=== PATIENT | female | born 1965 | race Caucasian/White ===

== ENCOUNTER 2017-02-26 10:23 | Emergency (ER) | payer MEDICAID ==
[~2017-02-26] VITALS: Ht 157.5 cm; Wt 60.8 kg
[~2017-02-26 10:23] MED LIST: DIVA125T3 PO; LORA-445; RISP1TAB45 PO; TRAZ50TA18 PO
[2017-02-26] MEDS ORDERED: CEFTRIAXONE 250 MG ONE (10:54)
[2017-02-26] MEDS ORDERED: AZITHROMYCIN 500 MG TABLET ONE (10:54)
[2017-02-26 11:30] LABS: ASPARTATE AMINO TRANSFERASE 14 U/L (15-37); BLOOD UREA NITROGEN 23 mg/dL (7-18)
[2017-02-26] MEDS ORDERED: AZITHROMYCIN 500 MG TABLET PO ONE (12:00)
[2017-02-26] MEDS ORDERED: CEFTRIAXONE 250 MG IM ONE (12:00)
[2017-02-26 12:20] VITALS: BP 126/68
[2017-02-26 13:05] LABS: HCG UR OBC PASS
[2017-02-26] MEDS ORDERED: FLUCONAZOLE 100 MG TABLET PO ONE (13:30)
== END 2017-02-26 13:20 | disposition home or self-care (01) ==
LOC: ED 11:40
DX: B37.3 Candidiasis of vulva and vagina (principal)
CPT/HCPCS: 36415; 74022; 80053; 81001; 81025; 84703; 85025; 87086; 87210; 87491; 87591; 87808; 96372; 99285; J0696

== ENCOUNTER 2018-07-14 19:29 | Emergency (ER) | payer MEDICAID ==
[~2018-07-14 19:29] MED LIST changes: -DIVA125T3 PO; +DIVA125T31 PO; +TRAZ-136 PO; -TRAZ50TA18 PO
== END 2018-07-14 20:01 | disposition left against medical advice (07) ==
LOC: ED 19:55
DX: Z53.21 Procedure and treatment not carried out due to patient leaving prior to being seen by health care provider (principal)

== ENCOUNTER 2018-09-22 16:18 | Emergency (ER) | payer MEDICAID ==
[~2018-09-22] VITALS: Ht 157.5 cm; Wt 55.5 kg
[~2018-09-22 16:18] MED LIST changes: -TRAZ-136 PO; +TRAZ50TA66 PO
[2018-09-22 16:20] VITALS: BP 140/82
--- NOTE | 2018-09-22 18:19 | NUR ---
CALLED FOR ROOM, NO ANSWER.
--- NOTE | 2018-09-22 18:28 | NUR ---
CALLED FOR ROOM, NO ANSWER
--- NOTE | 2018-09-22 18:42 | NUR ---
3RD CALL FOR ROOM, NO ANSWER
== END 2018-09-22 18:48 ==
LOC: ED 18:42
DX: M79.671 Pain in right foot (principal); M79.672 Pain in left foot
CPT/HCPCS: 99283

== ENCOUNTER 2018-09-23 03:50 | Emergency (ER) | payer MEDICAID ==
--- NOTE | 2018-09-23 04:14 | NUR ---
PT CALLED FOR TRIAGE AND TOLD RN "I'LL BE THERE WHEN I GET THERE". PT TALKING TO SELF AND TWITCHING AROUND IN LOBBY.
--- NOTE | 2018-09-23 04:18 | NUR ---
PT CONT TO REFUSE TRIAGE. DANCING AROUND IN LOBBY AT THIS TIME.
--- NOTE | 2018-09-23 04:33 | NUR ---
SECURITY ESCORTED PT OUT OF LOBBY
== END 2018-09-23 04:36 | disposition left against medical advice (07) ==
LOC: ED 04:31
DX: R68.0 Hypothermia, not associated with low environmental temperature (principal); Z53.21 Procedure and treatment not carried out due to patient leaving prior to being seen by health care provider

== ENCOUNTER 2018-09-23 14:24 | Emergency (ER) | payer MEDICAID ==
[~2018-09-23] VITALS: Ht 157.5 cm; Wt 50.0 kg
[2018-09-23 14:36] VITALS: BP 129/77
--- NOTE | 2018-09-23 14:45 | NUR ---
PT AMBULATORY TO ROOM 3 W/ C/P PSYCHOSIS. PT NOT ANSWERING QUESTIONS. REFUSING ASSESSMENT AT THIS TIME. PER LEGAL PT WAS PLACED ON HOLD FOR STATING SHE WOULD JUMP OFF A BRIDGE. PERSONAL BELONGINGS (1 OF 1) PLACED IN SECURE LOCKER. ERP DR. CARTER AT BEDSIDE. ROOM SECURED. SITTER AT BEDSIDE. Addendum: 09/23/18 at 1456 by GISELLA BELONGING BAGS (2 OF 2)
[2018-09-23] MEDS ORDERED: LORazepam 2 MG/ML, 1ML ONE (14:49)
[2018-09-23] MEDS ORDERED: LORazepam 2 MG/ML, 1ML IM ONE (15:00)
[2018-09-23 15:16] LABS: BASOPHILS # (AUTO) 0.06 x10^3/uL (0-0.1); BASOPHILS % (AUTO) 1 % (0-1); EOSINOPHILS # (AUTO) 0.15 x10^3/uL (0-0.4); EOSINOPHILS % (AUTO) 2 % (1-7); LYMPHOCYTES # (AUTO) 1.77 x10^3/uL (1-3.4); LYMPHOCYTES % (AUTO) 24 % (22-44); MD NO; MEAN CORPUSCULAR HEMOGLOBIN 30.3 pg (27.0-34.8); MEAN CORPUSCULAR HGB CONC 33.2 g/dL (32.4-35.8); MEAN CORPUSCULAR VOLUME 91.4 fL (80-100); MEAN PLATELET VOLUME 7.9 fL (7.4-10.4); MONOCYTES # (AUTO) 0.74 x10^3/uL (0.2-0.8); MONOCYTES % (AUTO) 10 % (2-9); NEUTROPHILS # (AUTO) 4.67 x10^3/uL (1.8-6.8); NEUTROPHILS % (AUTO) 63 % (42-75); PLATELET COUNT 284 x10^3/uL (130-400); RED BLOOD COUNT 3.44 x10^6/uL (3.82-5.3); RED CELL DISTRIBUTION WIDTH 15.9 % (9.6-15.2)
[2018-09-23 15:20] LABS: ALANINE AMINOTRANSFERASE 29 U/L (12-78); ALBUMIN 3.6 g/dL (3.4-5.0); ANION GAP 6 mmol/L (5-15); CALCIUM 8.5 mg/dL (8.5-10.1); CHLORIDE 111 mmol/L (98-107); CREATININE 0.89 mg/dL (0.55-1.02)
[2018-09-23 15:28] LABS: ALKALINE PHOSPHATASE 98 U/L (45-117); BILIRUBIN,TOTAL 0.6 mg/dL (0.2-1.0); CREATINE KINASE, TOTAL 399 U/L (26-192); TOTAL PROTEIN 7.1 g/dL (6.4-8.2)
[2018-09-23 15:29] LABS: ACETAMINOPHEN < 2 mcg/mL (10-30); SALICYLATE LEVEL < 1.7 mg/dL (2.8-20.0)
[2018-09-23] MEDS ORDERED: DIPH,PERTUSS(ACELL),TET VAC/PF 0.5 ML IM-VACC ONE ×2 (16:00→19:00)
--- NOTE | 2018-09-23 16:04 | NUR ---
REPORT GIVEN TO ELLIOTT HUNT.
--- NOTE | 2018-09-23 16:04 | NUR ---
REPORT FROM ELLIOTT LOVE
--- NOTE | 2018-09-23 16:19 | NUR ---
PT MOSTLY SLEEPY. RESTING IN GURNEY W/ EYES CLOSED. EVEN/REGULAR RESPIRATIONS NOTED. PT ON CONTINUOUS SPO2 MONITORING. SPO2 >90% ON RA. ROOM SECURE. NO PERSONAL BELONGINGS NOTED IN ROOM. SITTER PRESENT.
--- NOTE | 2018-09-23 18:00 | NUR ---
PT PLACED ON 2L BY NC FOR SPO2 85%. PT REMAINS MOSTLY DROWSY, AROUSABLE TO VOICE AND LIGHT PHYSICAL STIM AND RETURNS QUICKLY TO SLEEP. SITTER PRESENT. ROOM SECURE
--- NOTE | 2018-09-23 19:09 | NUR ---
BREAK RN-TDAP GIVEN IN R DELTOID. PT SLEEPING. SPO2=94% ON 2L VIA NASAL CANNULA.
--- NOTE | 2018-09-23 20:28 | NUR ---
PT SITTING UP IN BED, REMAINS MOSTLY DROWSY. SPO2 >90% ON RA. SITTER AT DOORWAY
--- NOTE | 2018-09-23 22:18 | NUR ---
PT AWAKE/MAINTAINING RA SPO2 >90%. PT PROVIDED BELONGINGS AND ASKED TO DRESS SELF. PT REQUIRING ENCOURAGEMENT TO DRESS. TECH AT BEDSIDE TO ASSIST PT. DC EDUCATION PROVIDED. TAXI VOUCHER PROVIDED TO [facility] WHERE THERE IS A BED BEING RESERVED FOR HER.
--- NOTE | 2018-09-23 22:25 | NUR ---
PT PROVIDED JUICE. AMBULATED STEADILY TO [place] WHERE [facility] WAS CALLED FOR TRANSPORT TO [facility]
== END 2018-09-23 22:27 | disposition home or self-care (01) ==
LOC: ED 16:17
DX: F23 Brief psychotic disorder (principal); G89.29 Other chronic pain; F32.9 Major depressive disorder, single episode, unspecified
CPT/HCPCS: 36415; 80053; 80307; 80329; 82550; 85025; 90471; 90715; 93005; 96372; 99284; J2060; G0480

== ENCOUNTER 2018-09-27 19:09 | Emergency (ER) | payer MEDICAID | END 2018-09-27 19:33 | disposition left against medical advice (07) | LOC: ED 19:20 | DX: R00.0 Tachycardia, unspecified (principal); Z53.21 Procedure and treatment not carried out due to patient leaving prior to being seen by health care provider ==

== ENCOUNTER 2018-12-12 08:45 | Emergency (ER) | payer MEDICAID ==
[~2018-12-12] VITALS: Ht 157.5 cm; Wt 55.0 kg
[2018-12-12 08:57] VITALS: BP 101/70
--- NOTE | 2018-12-12 09:32 | NUR ---
CARE FOR DC PROVIDED: PT SITTING ON CHAIR, NO ACUTE DISTRESS NOTED. NO IV TO DC. REVIEWED DC INSTRUCTIONS WITH PT. UNDERSTANDING VERBALZIED. PT LEFT AMB, GAIT STEADY.
== END 2018-12-12 09:34 | disposition home or self-care (01) ==
LOC: ED 09:28
DX: B86 Scabies (principal); M54.9 Dorsalgia, unspecified; G89.29 Other chronic pain; F32.9 Major depressive disorder, single episode, unspecified
CPT/HCPCS: 99283

== ENCOUNTER 2019-07-09 05:18 | Emergency (ER) | payer MEDICAID ==
[~2019-07-09] VITALS: Ht 162.6 cm; Wt 50.0 kg
[2019-07-09 05:43] VITALS: BP 104/65
--- NOTE | 2019-07-09 05:54 | NUR ---
Patient ambulated into room with two [employer] officers. Was informed patient was place on a legal 2k. When asked why, the officers stated they didn't know why, the patient had come from mental health housing. Patient denies suicidal or homicidal ideation. Officer Haley confimred patient had been completely cooperative. Was provided with a mental health crisis packet claiming a patient is at risk for serious injury, illness or . In mostly illegible writing, it appears Yanni Mario RN states patient takes her medication, does not threaten staff, completes hygeine, and environment cleans. But patient does not identify a place to get food or usp from. Despite this, patient clearly states an address that she can return to (a parents address) for food and usp. Patient disrobed without argument and items were placed in belongings bags outside of room. Vital signs were taken and are within normal limits (see triage flowsheet) Physician to bedside, relayed following information. Patient relays in clear concise speech that she has a place to go to for food and usp and identifies no threats to herself or others and no suicidal ideation confirmed. Legal 2K cleared by provider. Patient provided with food (cereal x2) and will provide taxi for transport to the above mentioned residence.
== END 2019-07-09 06:40 | disposition home or self-care (01) ==
LOC: ED 06:24
DX: Z00.00 Encounter for general adult medical examination without abnormal findings (principal)
CPT/HCPCS: 99283

== ENCOUNTER 2019-09-05 04:43 | Emergency (ER) | payer MEDICAID ==
[~2019-09-05] VITALS: Ht 157.5 cm; Wt 52.8 kg
[2019-09-05 04:44] VITALS: BP 131/75
--- NOTE | 2019-09-05 05:39 | NUR ---
PT GIVEN JUICE AND KIEL CRACKERS PRIOR TO DISCHARGE. AMBULATING IN HALLWAY WITH STEADY GAIT STATING THAT SHE WANTS TO LEAVE, PT TALKING WITH PA STATING THAT SHE WANTS TO LEAVE.
== END 2019-09-05 05:43 | disposition home or self-care (01) ==
LOC: ED 05:18
DX: J02.9 Acute pharyngitis, unspecified (principal); G89.29 Other chronic pain
CPT/HCPCS: 87081; 87880; 99283

== ENCOUNTER 2019-09-06 15:22 | Emergency (ER) | payer MEDICAID ==
--- NOTE | 2019-09-06 15:47 | NUR ---
patient called from lobby for triage, no answer.
--- NOTE | 2019-09-06 15:54 | NUR ---
Second attempt: patient called from lobby for triage, no answer.
--- NOTE | 2019-09-06 16:11 | NUR ---
patient called from lobby for triage, no answer, final attempt.
== END 2019-09-06 16:13 | disposition left against medical advice (07) ==
LOC: ED 16:07
DX: Z53.21 Procedure and treatment not carried out due to patient leaving prior to being seen by health care provider (principal)

== ENCOUNTER 2019-09-14 11:33 | Emergency (ER) | payer MEDICAID ==
[~2019-09-14] VITALS: Ht 157.5 cm; Wt 52.8 kg
[2019-09-14 11:39] VITALS: BP 142/84
[2019-09-14] MEDS ORDERED: IBUPROFEN 200 MG TABLET ONE (13:19)
[2019-09-14] MEDS ORDERED: IBUPROFEN 600 MG TABLET PO ONE (13:30)
== END 2019-09-14 13:33 ==
LOC: ED 13:20
DX: L01.01 Non-bullous impetigo (principal)
CPT/HCPCS: 99283

== ENCOUNTER 2019-09-23 18:09 | Emergency (ER) | payer MEDICAID ==
[~2019-09-23] VITALS: Ht 160 cm; Wt 49.0 kg
[2019-09-23] MEDS ORDERED: LORazepam 1MG TABLET PO ONE (19:00)
[2019-09-23] MEDS ORDERED: MIDAZOLAM 1 MG/ML, 2ML ONE (19:07)
--- NOTE | 2019-09-23 19:10 | NUR ---
Pt taken back to room from wall by DEANNE. Pt was combative in room and undressed herself. Pt was medicated with Versed and placed in 4-point restraints. There was a glass pipe that broke on the floor in the process of rooming pt.
--- NOTE | 2019-09-23 19:18 | NUR ---
UNABLE TO GET EKG. PATIENT IS IN 4 POINT RESTRAINTS, AND UNABLE TO KEEP STILL AT THIS TIME. WILL CHECK BACK.
[2019-09-23] MEDS ORDERED: MIDAZOLAM 1 MG/ML, 5ML IM ONE (19:30)
--- NOTE | 2019-09-23 19:35 | NUR ---
Pt has 2 bags of belongings that were removed from room. Pt had food products in her belongings that were disposed of. Blood has been drawn and EKG has been obtained. Sitter positioned outside room.
[2019-09-23 20:08] LABS: ALANINE AMINOTRANSFERASE 53 U/L (12-78); ANION GAP 4 mmol/L (5-15); CALCIUM 8.2 mg/dL (8.5-10.1); CHLORIDE 110 mmol/L (98-107)
[2019-09-23 20:10] LABS: SALICYLATE LEVEL < 1.7 mg/dL (2.8-20.0)
[2019-09-23 20:18] LABS: ALKALINE PHOSPHATASE 69 U/L (45-117); BILIRUBIN,TOTAL 0.3 mg/dL (0.2-1.0); TOTAL PROTEIN 6.2 g/dL (6.4-8.2)
[2019-09-23 20:28] LABS: BASOPHILS # (AUTO) 0.02 x10^3/uL (0-0.1); BASOPHILS % (AUTO) 0 % (0-1); EOSINOPHILS # (AUTO) 0.16 x10^3/uL (0-0.4); EOSINOPHILS % (AUTO) 3 % (1-7); LYMPHOCYTES # (AUTO) 1.62 x10^3/uL (1-3.4); LYMPHOCYTES % (AUTO) 29 % (22-44); MD NO; MEAN CORPUSCULAR HEMOGLOBIN 30.4 pg (27.0-34.8); MEAN CORPUSCULAR HGB CONC 33.2 g/dL (32.4-35.8); MEAN CORPUSCULAR VOLUME 91.7 fL (80-100); MEAN PLATELET VOLUME 8.1 fL (7.4-10.4); MONOCYTES # (AUTO) 0.39 x10^3/uL (0.2-0.8); MONOCYTES % (AUTO) 7 % (2-9); NEUTROPHILS # (AUTO) 3.35 x10^3/uL (1.8-6.8); NEUTROPHILS % (AUTO) 60 % (42-75); PLATELET COUNT 279 x10^3/uL (130-400); RED BLOOD COUNT 3.54 x10^6/uL (3.82-5.3); RED CELL DISTRIBUTION WIDTH 15.1 % (9.6-15.2)
[2019-09-23] MEDS ORDERED: ZIPRASIDONE 20 MG INJ IM ONE ×2 (21:39→22:00)
--- NOTE | 2019-09-23 22:25 | NUR ---
RESTRAINTS RELEASED AT 2218; PT. REQUESTING FOOD. PEANUT BUTTER AND JELLY SANDWICH PROVIDED TO PT. PT. VERBALIZED UNDERSTANDING OF IMPORTANCE OF REMAINING COOPERATIVE WITH STAFF. SITTER REMAINS IN DOORWAY FOR OBS. PT. REMAINS ON CONTINUOUS PULSE OX AND B/P MONITORS AT THIS TIME.
--- NOTE | 2019-09-23 23:21 | NUR ---
PT. RESTING ON GURNEY WITH EYES CLOSED. EVEN, NON-LABORED RESPIRATIONS VISIBLE. CONTINUOUS PULSE OX AND B/P MONITORS REMAIN IN PLACE. SITTER IN ROBERTO FOR OBS. NO DISTRESS NOTED.
--- NOTE | 2019-09-24 00:33 | NUR ---
PT. CONTINUES RESTING ON GURNEY WITH EYES CLOSED. PT. IN POSITION. CONTINUOUS PULSE OX AND B/P MONITORS REMAIN IN PLACE. ALL SAFETY MEASURES MAINTAINED. NO DISTRESS NOTED. SITTTER REMAINS IN VIEW OF DOORWAY.
--- NOTE | 2019-09-24 01:26 | NUR ---
Pt woke up breifly and ate a sandwich. Pt now resting again showing no signs of distress. Sitter remains in clear view of the room.
[2019-09-24 03:16] VITALS: BP 124/62
--- NOTE | 2019-09-24 04:15 | NUR ---
Pt woke up and requested to use the restroom. Pt offered a commode so a urine sample could be obtinaed. Pt became agitated when offered a commode. Pt began to yell at staff stating "You're trying to kill me" and "Can I call my certifed refrigeration operator so I can get my last rights". Pt then began to verbally abuse staff with cursing and stating "I don't like you". Pt then demanded "Give me some breakfast". Pt informed that verbal abuse will not be tolerated.
[2019-09-24 04:47] LABS: AMPHETAMINE SCREEN, URINE Positive (Negative); BARBITURATE SCREEN, URINE Negative (Negative); BENZODIAZEPINE SCREEN, URINE Positive (Negative); CANNABINOID SCREEN, URINE Negative (Negative); COCAINE SCREEN, URINE Negative (Negative); METHADONE SCREEN, URINE Negative (Negative); OPIATE SCREEN, URINE Negative (Negative)
--- NOTE | 2019-09-24 05:00 | NUR ---
Pt now cooperative and no longer verbally abusive to staff. Pt requested food. Pt brought a turkey sandwich from the coffee cart.
--- NOTE | 2019-09-24 05:29 | NUR ---
TELEPSYCH CONSULT INITIATED.
--- NOTE | 2019-09-24 05:41 | NUR ---
TELEPSYCH CONSULT CANCELLED; ERMD TO CERTIFY HOLD WITHOUT CONSULT.
--- NOTE | 2019-09-24 05:47 | NUR ---
VI AMBRIZ in to rosenda pt. Pt stating she believes she is in an orphanage at the moment. Pt is redirectible with tasks but difficult to orient. Pt does have yelling episodes when in the room alone. Pt consumed all of the turkey sandwich. Pt has disorganized speech and mumbles in the room.
--- NOTE | 2019-09-24 06:02 | NUR ---
PT. WITH [facility]. PACKET FAXED TO [facility], [facility], AND [facility]. PT. WAS REFUSED BY [facility] AT 0554 ELLIOTT JONES STATES THEY ARE UNABLE TO ACCEPT PT. BECAUSE THERE IS NO [employer] ENAMEL INSTALLER ON RIGHT NOW.
[2019-09-24] MEDS ORDERED: ZIPRASIDONE 20 MG INJ IM ONE ×2 (06:41→07:00)
--- NOTE | 2019-09-24 06:43 | NUR ---
REPORT GIVEN TO RAUDEL AT [facility]. PT WILL GET 10 MG GEODON FOR CONTINUED YELLING AND PACING IN THE ROOM.
--- NOTE | 2019-09-24 07:00 | NUR ---
REC BS REPORT PT RESTING AT THIS TIME HAS JUST BEEN MEDICATED NOT IN RESTRAINTS SITTER IN THE ROBERTO WATCHING THE PT
--- NOTE | 2019-09-24 07:24 | NUR ---
RAUDEL CALLED FROM [facility] THEY WILL CALLAGAIN AT 10 TODAY WILL TAKE IF PT HAS REMAINED OUT OF RESTRAINS
--- NOTE | 2019-09-24 08:58 | NUR ---
BREAK RN: PT SLEEPING CALMLY, NAD WITH EQUAL CHEST RISE/FALL, NO NEEDS AT THIS TIME, PT REMAINS IN SAFE ENVIRONMENT, SITTER IN VIEW.
--- NOTE | 2019-09-24 10:15 | NUR ---
report to [facility]
--- NOTE | 2019-09-24 10:27 | NUR ---
THROUGHPUT RN: SHAHID CALLED, TRANSPORT SCHEDULED FOR 1130 TO [facility]. PCS FAXED TO [facility] NOW.
--- NOTE | 2019-09-24 10:49 | NUR ---
THROUGHPUT RN: DEANNE STATES THEY WILL PICK PT UP AT 1130.
== END 2019-09-24 12:18 ==
LOC: ED 19:21
DX: F15.959 Other stimulant use, unspecified with stimulant-induced psychotic disorder, unspecified (principal); F17.200 Nicotine dependence, unspecified, uncomplicated
CPT/HCPCS: 36415; 80053; 80307; 84443; 85025; 93005; 96372; 99285; J2250; J3486

== ENCOUNTER 2019-10-07 16:46 | Inpatient (IN) | payer MEDICAID ==
[~2019-10-07] VITALS: Ht 162.6 cm; Wt 50.3 kg
--- NOTE | 2019-10-07 16:57 | NUR ---
MD TO BEDSIDE FOR INITAL ASSESSMENT
--- NOTE | 2019-10-07 17:33 | NUR ---
PT CONTINUES TO BE RESTLESS IN BED. HR DECREASING INTO 120s. WILL CONTINUE TO MONITOR.
[2019-10-07 18:17] LABS: BASOPHILS # (AUTO) 0.04 x10^3/uL (0-0.1); BASOPHILS % (AUTO) 1 % (0-1); EOSINOPHILS % (AUTO) 2 % (1-7); LYMPHOCYTES # (AUTO) 1.33 x10^3/uL (1-3.4); LYMPHOCYTES % (AUTO) 19 % (22-44); MD NO; MEAN CORPUSCULAR HEMOGLOBIN 29.8 pg (27.0-34.8); MEAN CORPUSCULAR HGB CONC 32.9 g/dL (32.4-35.8); MEAN CORPUSCULAR VOLUME 90.6 fL (80-100); MEAN PLATELET VOLUME 7.8 fL (7.4-10.4); MONOCYTES # (AUTO) 0.44 x10^3/uL (0.2-0.8); MONOCYTES % (AUTO) 6 % (2-9); NEUTROPHILS # (AUTO) 5.26 x10^3/uL (1.8-6.8); NEUTROPHILS % (AUTO) 73 % (42-75); PLATELET COUNT 337 x10^3/uL (130-400); RED BLOOD COUNT 4.14 x10^6/uL (3.82-5.3); RED CELL DISTRIBUTION WIDTH 14.4 % (9.6-15.2)
[2019-10-07 18:26] LABS: ANION GAP 7 mmol/L (5-15); CALCIUM 8.7 mg/dL (8.5-10.1); CHLORIDE 105 mmol/L (98-107); CREATININE 0.88 mg/dL (0.55-1.02)
--- NOTE | 2019-10-07 18:39 | NUR ---
PT CONSTANTLY NEEDING TO BE REDIRECTED, TRYING TO GET OUT OF BED. SUP AND CHARGE NURSE UPDATED ON SITUATION.
[2019-10-07] MEDS ORDERED: LORazepam 2 MG/ML, 1ML IM ONE (19:00)
--- NOTE | 2019-10-07 19:00 | NUR ---
REPORT RECEIVED FROM EDWARD VILLAGRAN RN. PLAN OF CARE DISCUSSED. PATIENT CONTINUALLY TRYING TO GET OUT OF BED, NEEDS TO CONSTANTLY REDIRECTED. PATIENT MOVED TO MATTRESS ON GROUND AND MONITORING TAKEN OFF PER MD ORDERS
[2019-10-07] MEDS ORDERED: LORazepam 2 MG/ML, 1ML ONE (19:15)
--- NOTE | 2019-10-07 19:20 | NUR ---
PATIENT MEDICATED PER EMAR, TOLERATED WELL. ELLIOTT RODGERS TO HELP MEDICATE
--- NOTE | 2019-10-07 20:25 | NUR ---
PER ORDERS FROM MD BRADLEY PATIENT PLACED IN 4-POINT SOFT RESTRAINTS FOR SAFETY. PATIENT CONTINUALLY TRYING TO STAND UP/ WALK, PATIENT UNSTEADY ON FEET, UNABLE TO WALK, UNABLE TO VERBALIZE ANY WORDS, UNSAFE FOR PATIENT TO WALK AT THIS TIME
--- NOTE | 2019-10-07 21:18 | NUR ---
CONTINUED NEED FOR SOFT RESTRAINTS AT THIS TIME. DOCUMENTED ON RESTRAINT PAPERWORK. VSS, RESPIRATIONS EVEN AND UNLABORED. PATIENT IN VIEW OF PRIMARY RN
--- NOTE | 2019-10-07 22:09 | NUR ---
CONTINUED NEED FOR SOFT RESTRAINTS AT THIS TIME. DOCUMENTED ON RESTRAINT PAPERWORK. VSS, RESPIRATIONS EVEN AND UNLABORED. PATIENT IN VIEW OF PRIMARY RN
--- NOTE | 2019-10-07 23:25 | NUR ---
PATIENT REDUCED TO 2-POINT SOFT RESTRAINT
--- NOTE | 2019-10-07 23:30 | NUR ---
PATIENT RELEASED FROM RESTRAINTS AT THIS TIME
--- NOTE | 2019-10-08 01:00 | NUR ---
PATIENT RESTING ON GURNEY, PERIODS OF WAKEFULNESS, SITTER AT DOOR TO REORIENT PATIENT
--- NOTE | 2019-10-08 01:46 | NUR ---
ATTEMPTED TO GET PATIENT TO DRINK WATER, PATIENT TOOK ONE SIP. PATIENT WON'T VERBALIZE ANY WORDS AT THIS TIME.
--- NOTE | 2019-10-08 02:20 | NUR ---
ERP TO BEDSIDE TO EVALUATE PATIENT.
--- NOTE | 2019-10-08 02:21 | NUR ---
PATIENT PLACED IN GOWN, LINENS CHANGED. VSS. SITTER AT DOOR
[2019-10-08] MEDS ORDERED: HALOPERIDOL 5 MG/ML ONE (02:30)
[2019-10-08] MEDS ORDERED: HALOPERIDOL 5 MG/ML IM PRN (02:30)
--- NOTE | 2019-10-08 02:34 | NUR ---
CT DELAY, PT UNCOOPERATIVE.
[2019-10-08 03:08] LABS: CREATINE KINASE, TOTAL 361 U/L (26-192)
--- NOTE | 2019-10-08 03:39 | NUR ---
SUPPLY CHAIN INTERN TO ROOM, ATTEMPTED TO TAKE BP CUFF OFF AND PATIENT STARTED THRASHING ARMS AROUND. MD NOTIFIED. PATIENT IS UNABLE TO GO TO CT AT THIS TIME DUE TO BEING UNCOOPERATIVE
--- NOTE | 2019-10-08 03:46 | NUR ---
PT UNABLE TO COOPERATE FOR CT.
--- NOTE | 2019-10-08 03:53 | NUR ---
PATIENT TO CT
--- NOTE | 2019-10-08 04:09 | NUR ---
REPORT GIVEN TO ELLIOTT OLMOS. PLAN OF CARE DISCUSSED. PATIENT MOVED TO ROOM 3 TO BE ABLE TO HAVE SHARED SITTER
--- NOTE | 2019-10-08 04:16 | NUR ---
PT RESTING ON GURNEY WITH EYES CLOSED, RESPIRATIONS EVEN AND NONLABORED. SITTER IN HALLWAY WITHIN LINE OF SIGHT. ROOM SECURED. X2 RAILS RAISED.
--- NOTE | 2019-10-08 05:52 | NUR ---
PT WITH HEIDI VARGAS. EDUIN AT [facility] AND SARA AT [facility] BOTH DECLINED TRANSFER
--- NOTE | 2019-10-08 05:58 | NUR ---
ADMIT FORM AND FACESHEET FAXED TO [employer].
[2019-10-08] MEDS ORDERED: ONDANSETRON 2MG/ML, 2ML IVPush PRN (06:30)
[2019-10-08] MEDS ORDERED: ACETAMINOPHEN 325 MG TABLET PO PRN (06:30)
[2019-10-08] MEDS ORDERED: HALOPERIDOL 5 MG/ML IVPush PRN (06:30)
[2019-10-08] MEDS ORDERED: hydrALAzine 20 MG/ML, 1ML IVPush PRN (06:30)
[2019-10-08] MEDS ORDERED: ONDANSETRON ODT 4 MG PO PRN (06:30)
[2019-10-08 06:46] LABS: BASOPHILS # (AUTO) 0.03 x10^3/uL (0-0.1); BASOPHILS % (AUTO) 0 % (0-1); EOSINOPHILS # (AUTO) 0.09 x10^3/uL (0-0.4); EOSINOPHILS % (AUTO) 1 % (1-7); LYMPHOCYTES # (AUTO) 1.35 x10^3/uL (1-3.4); LYMPHOCYTES % (AUTO) 18 % (22-44); MD NO; MEAN CORPUSCULAR HEMOGLOBIN 29.7 pg (27.0-34.8); MEAN CORPUSCULAR HGB CONC 32.4 g/dL (32.4-35.8); MEAN CORPUSCULAR VOLUME 91.8 fL (80-100); MEAN PLATELET VOLUME 8.4 fL (7.4-10.4); MONOCYTES # (AUTO) 0.48 x10^3/uL (0.2-0.8); MONOCYTES % (AUTO) 6 % (2-9); NEUTROPHILS # (AUTO) 5.67 x10^3/uL (1.8-6.8); NEUTROPHILS % (AUTO) 75 % (42-75); PLATELET COUNT 325 x10^3/uL (130-400); RED BLOOD COUNT 4.46 x10^6/uL (3.82-5.3); RED CELL DISTRIBUTION WIDTH 14.9 % (9.6-15.2)
--- NOTE | 2019-10-08 07:02 | NUR ---
REPORT RECEIVED FROM AMARILIS. PT RESTING ON GURNEY, NOT IN RESTRAINTS. ROOM SECURE. SITTER AT BEDSIDE. PT NOTED TO BE TALKING TO SELF BUT IS NOT YELLING OR SEEMING DISTRESSED AT THIS TIME. URINE WALKED TO LAB.
--- NOTE | 2019-10-08 07:07 | NUR ---
THROUGHPUT: TRANSFER DECLINED FOR TRANSFER BY [facility] ([facility]) & [facility] ([facility]), PSN FORM FAXED & EMAIL SENT.
[2019-10-08 07:13] LABS: CULTURE INDICATED? NO; MICROSCOPIC NOT IND
[2019-10-08 07:25] LABS: AMPHETAMINE SCREEN, URINE Negative (Negative); BARBITURATE SCREEN, URINE Negative (Negative); BENZODIAZEPINE SCREEN, URINE Negative (Negative); CANNABINOID SCREEN, URINE Negative (Negative); COCAINE SCREEN, URINE Negative (Negative); METHADONE SCREEN, URINE Negative (Negative); OPIATE SCREEN, URINE Negative (Negative)
--- NOTE | 2019-10-08 07:38 | NUR ---
UNABLE TO COMPLETE MED REC PT IS UNABLE TO DISCUSS MEDS TAKEN, IF ANY.
--- NOTE | 2019-10-08 07:40 | NUR ---
ATTEMPTED TO CALL MD TO DISCUSS PT'S POC AT THIS TIME, NO ANSWER, UNABLE TO LEAVE MESSAGE. WILL CALL AGAIN SOON.
--- NOTE | 2019-10-08 07:55 | NUR ---
RADIOLOGY AT BEDSIDE NOW.
--- NOTE | 2019-10-08 08:22 | NUR ---
PT AMBULATORY WITH STEADY GAIT TO BATHROOM AND BACK TO GURNEY. REQUIRES GREAT DEAL OF REDIRECTION TO GET BACK TO GURNEY AND LAY DOWN. NOW RESTING ON GURNEY. NADN. SITTER AT BEDSIDE. ROOM SECURE.
--- NOTE | 2019-10-08 09:27 | NUR ---
PER MD OKAY TO GIVE PT PO FLUIDS FOR SWALLOW EVAL. MD STATES IF PT ABLE TO SWALLOW SHE CAN EAT AND DRINK AND WE CAN REASSESS IF SHE NEEDS AN IV OR NOT. THIS RN PUT WATER AT PT'S BEDSIDE. ATTEMPTED TO WAKE PT UP AND DISCUSS POC BUT PT IS SLEEPING SOUNDLY. SITTER AWARE OF POC AND WHEN PT WAKE UP NEXT SITTER WILL LET THIS RN KNOW. ROOM SECURE. PT RESTING ON GURNEY WITH EYES CLOSED, RESPIRATIONS EVEN AND UNLABORED. JUNIOR.
[2019-10-08] MEDS: D5%-0.45NACL+KCL 20MEQ 1,000 ML IV SCH ×2 (09:28→16:21)
--- NOTE | 2019-10-08 09:53 | NUR ---
REPORT GIVEN TO ELLIOTT HERNANDEZ AND ELLIOTT YEE.
--- NOTE | 2019-10-08 09:55 | NUR ---
REPORT RECEIVED FROM ELLIOTT BATRES. [facility]
--- NOTE | 2019-10-08 10:34 | NUR ---
PT WENT TO MRI. AT MRI SHE BECAME IMPULSIVE AND WOULD NOT LAY STILL. IT WAS DETERMINED BY MRI STAFF THAT THE SITUATION WAS UNSAFE AND THEREFORE THE MRI COULD NOT BE CONDUCTED AT THIS TIME. PT IS BACK IN ROOM WITH A SITTER OUTSIDE OF ROOM
--- NOTE | 2019-10-08 10:47 | NUR ---
NOTIFIED OF PT BEING UNABLE TO GET MRI
--- NOTE | 2019-10-08 10:58 | NUR ---
SPOKE WITH DR. GRAY ABOUT ORDERING A FOOD TRAY FOR PT. HE CURRENTLY HAS NPO ORDER FOR HER. BUT HE TOLD ME IT WAS OK TO ORDER A TRAY IF SHE PASSED SWALLOW EVAL. TRAY HAS BEEN ORDERED
[2019-10-08 13:06] VITALS: BP 166/101
[2019-10-08 16:34] VITALS: BP 113/75
[2019-10-08 19:13] VITALS: BP 114/74
[2019-10-09 00:39] VITALS: BP 130/69
[2019-10-09] MEDS: D5%-0.45NACL+KCL 20MEQ 1,000 ML IV SCH ×3 (01:58→22:45)
[2019-10-09 06:39] LABS: ANION GAP 3 mmol/L (5-15); CALCIUM 8.6 mg/dL (8.5-10.1); CHLORIDE 110 mmol/L (98-107); CREATININE 0.83 mg/dL (0.55-1.02)
[2019-10-09 07:55] VITALS: BP 99/67
[2019-10-09] MEDS ORDERED: NICOTINE 21 MG/24 HR PATCH.TD24 ONE (12:09)
[2019-10-09] MEDS: NICOTINE 21 MG/24 HR PATCH.TD24 TD SCH (12:12)
[2019-10-09 18:32] VITALS: BP 100/65
[2019-10-10 00:26] VITALS: BP 106/67
[2019-10-10 05:37] LABS: ANION GAP 4 mmol/L (5-15); CALCIUM 8.3 mg/dL (8.5-10.1); CHLORIDE 107 mmol/L (98-107)
[2019-10-10 05:38] LABS: CREATININE 0.77 mg/dL (0.55-1.02)
[2019-10-10] MEDS: NICOTINE 21 MG/24 HR PATCH.TD24 TD SCH (07:32)
[2019-10-10 08:08] VITALS: BP 111/71
[2019-10-10] MEDS ORDERED: ACETAMINOPHEN 325 MG TABLET PO PRN (08:30)
[2019-10-10] MEDS ORDERED: NICO-487 TD (11:08)
== END 2019-10-10 13:07 | disposition home or self-care (01) | DRG 947 ==
LOC: ED 10-08 05:36 → SUATTDRO 10-08 06:12 → EDIP 10-08 06:27 → 4WST 10-08 12:20
PROVIDERS: ADMIT Family Medicine; ATTEND Internal Medicine
PROC: 0T9B70Z Drainage of Bladder with Drainage Device, Via Natural or Artificial Opening (ICD-10-PCS; principal; 2019-10-08)
DX: R41.82 Altered mental status, unspecified (principal); G92 Toxic encephalopathy; F15.129 Other stimulant abuse with intoxication, unspecified; R79.89 Other specified abnormal findings of blood chemistry; I10 Essential (primary) hypertension; Z59.0 Homelessness; Z88.8 Allergy status to other drugs, medicaments and biological substances
CPT/HCPCS: 36415; 70450; 71045; 80048; 80307; 81003; 82140; 82550; 82962; 83735; 84100; 84443; 85025; 93005; 96372; 99285; G0378; J1630; J2060; J3480

== ENCOUNTER 2020-01-30 08:55 | Emergency (ER) | payer MEDICAID ==
[~2020-01-30] VITALS: Ht 157.5 cm; Wt 54.4 kg
[~2020-01-30 08:55] MED LIST changes: +NICO-487 TD
--- NOTE | 2020-01-30 09:29 | NUR ---
PT PRESENTS TO ED WITH C/O REDNESS/BLISTERING TO FACE, PT SEEN AND EXAMINED BY MARIELLE TONG. PT GIVEN CRACKERS, JUICE AND CHEESE WITH MARIELLE OK. PT GIVEN NEW SHOES AND SOCKS. PT TO BE MEDICATED AND DC'D WITH RX FOR ABX. PT UPDATED WITH POC, AGREEABLE.
[2020-01-30] MEDS ORDERED: MUPIROCIN OINT 2%, 22GM TP SCH (09:30)
[2020-01-30] MEDS ORDERED: DIPH,PERTUSS(ACELL),TET VAC/PF 0.5 ML IM-VACC ONE ×2 (09:30→09:32)
--- NOTE | 2020-01-30 09:45 | NUR ---
jaquelineicin requested from pharmacy, med not in [facility]ell.
[2020-01-30 09:46] VITALS: BP 153/79
--- NOTE | 2020-01-30 10:02 | NUR ---
PHARMACY CALLED FOR SECOND REQUEST OF MUPORICIN OINTMENT.
--- NOTE | 2020-01-30 10:14 | NUR ---
PT GIVEN DC INSTRUCTIONS AND SCRIPT. PT EDUCATED REGARDING RX FOR BACRTIM. PT EDUCATED REGARDING WOUND CARE. PT GIVEN REFERRAL TO L[facility] INCOME PCP AND [facility]. PT GIVEN BUS PASS. PT A&O, RESPS EVEN AND UNLABORED, AMBULATORY TO DC DESK WITH STEADY GAIT. NADN AT ND.
== END 2020-01-30 10:15 | disposition home or self-care (01) ==
LOC: ED 09:09
DX: L01.01 Non-bullous impetigo (principal); Z88.6 Allergy status to analgesic agent
CPT/HCPCS: 90471; 90715; 99283

== ENCOUNTER 2020-02-06 01:36 | Emergency (ER) | payer MEDICAID ==
[~2020-02-06] VITALS: Ht 157.5 cm; Wt 53.6 kg
[2020-02-06 01:38] VITALS: BP 141/75
--- NOTE | 2020-02-06 01:57 | NUR ---
PATIENT REFUSING CARE. PT ELOPED PRIOR TO BEING SEEN BY MD.
== END 2020-02-06 01:59 | disposition home or self-care (01) ==
LOC: ED 01:40
DX: F98.9 Unspecified behavioral and emotional disorders with onset usually occurring in childhood and adolescence (principal); Z53.21 Procedure and treatment not carried out due to patient leaving prior to being seen by health care provider